=== PATIENT | female | born 1955 | race Caucasian/White ===

== ENCOUNTER 2021-03-31 10:42 | Day surgery (SDC) | payer OTHER, SELFPAY ==
[2021-03-31] VITALS (8 sets, daily range): BP systolic 135–158; BP diastolic 68–83; PULSE 67–88; RESP 14–16; TEMP 36.7–37.7; O2SAT 94–96; BMI 33.8
--- NOTE | 2021-03-31 | IMM_PTH ---
PATIENT: ALVIN AMAYA [place] [facility] [id number] AGE/SX: 65/F ROOM: RE03/31/[address]: Dr. Shanna Wild MD : 1955 BED: DIS: 03/31/2021 SPEC #: [id number] RECD: 04/04/21 13:01 STATUS: MARTÍNEZ RENaima #: [id number] JOSELINE: 03/31/21 00:[address]: Shanna Wild DEPT: IMMUNOHISTOCHEMISTRY RECD BY: Candace Her ENTERED: 04/04/21 13:05 SP TYPE: IMMUNO OTHR DR: Dr. Rene Delcid MD Tissues: Endometrium, NOS Procedures: SMA (add) MSH2 (add) MLH-1 (add) MSH6 (add) Anti-PMS2 (add) CALPONIN-1 (add) CK20 (add) CK7 (add) CK8 (add) DESMIN (add) KI-67 (add) P53 (add) ME (add) Vimentin (add) Pankeratin (add) ER (initial) PHYSICIAN & [address] [address] SPECIMEN INFORMATION: Tissue Source: Endometrial curettings Clinical Info: Postmenopausal bleeding Specimen Number: [id number] #3 CPT code: 42316, 75876 x15 METHODOLOGY: Deparaffinized sections of prefer/formalin-fixed tissue or PAP/DQ stained slides are incubated with monoclonal/polyclonal antibodies/oligonucleotide probes. Localization is made via biotin free immunoperoxidase method. Appropriate controls are performed and reacted as expected. Results on target cell population are indicated in the following table: RESULTS: ANTIBODY / CLONE RESULT Block 3 Ki-67 (30-9) positive, 70 ? 80% P53 (DO-7) positive, wild type MLH-1 (M1) positive MSH2 (25D12) positive MSH6 (44) positive PMS2 (CDV0214) positive ER (6F11) positive, focal ME (1E2) positive, focal AE1-3 (AE1/AE3/PCK26) positive, focal CK7 (OV-TL12/30) positive, focal CK8 (73ymvgW97) positive, focal CK20 (KS20.8) negative Vimentin (V9) positive Calponin-1 (ZG853A) positive, focal Actin (1A4) positive Desmin (CE-R-11) negative These tests were developed and their performance characteristics determined by [facility]. They may not have been cleared or approved by the U.S. Food and Drug Administration. The FDA has determined that such clearance or approval is not necessary. The above immunohistochemical/dualISH markers are ordered and reviewed by the Pathologist. 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 Result of Microsatellite Instability Study: Negative (no loss of mismatch protein; no microsatellite instability detected). See comment. SJ:vandana 04/08/2021 The specimen is sent to [facility] for expert opinion, reviewed by Dr. Villalta and the above diagnosis is rendered. The complete report is viewable in the patient's EMR. Case has been reviewed in consultation with Dr. May who concurs with the above diagnosis. IDC:AM
--- NOTE | 2021-03-31 10:16 | EKG12_ITS ---
Test Reason : PRE OP Blood Pressure : / mmHG Vent. Rate : 087 BPM Atrial Rate : 087 BPM P-R Int : 150 ms QRS Dur : 082 ms QT Int : 354 ms P-R-T Axes : 031 004 004 degrees QTc Int : 425 ms Normal sinus rhythm ST & T wave abnormality, consider anterior ischemia Abnormal ECG Confirmed by CHANTAL JAMISON, FELICE ([id number]), medical editor BARON RENEE ([id number]) on 04/05/2021 1:15:48 PM Referred By: Shanna Wild Confirmed By:FELICE CORNEJO MD
--- NOTE | 2021-03-31 12:25 | EMB_PTH ---
PATIENT: ALVIN AMAYA [place] [facility] [place][id number] AGE/SX: 65/F ROOM: RE03/31/[address]: Dr. Shanna Wild MD : 1955 BED: DIS: 03/31/2021 SPEC #: [id number] RECD: 04/01/21 06:48 STATUS: MARTÍNEZ MARSH #: [id number] JOSELINE: 03/31/21 12:[address]: Shanna Wild DEPT: SURGICAL PATHOLOGY RECD BY: Carolyn Carrera ENTERED: 04/01/21 09:50 SP TYPE: ENDOM BX/C OTHR DR: Dr. 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 See comment. SJ:vandana 04/08/2021 COMMENT The specimen is sent to [facility] for expert opinion, reviewed by Dr. Villalta and the above diagnosis is rendered. The complete report is viewable in the patient's EMR. Immunohistochemistry ([id number]) performed here and additional immunohistochemical stains performed at [facility] supports the above diagnosis. Case has been reviewed in consultation with Dr. May who concurs with the above diagnosis. IDC:AM MICROSCOPIC DESCRIPTION Slides are reviewed. GROSS DESCRIPTION Received in fixative is one container labeled with the patient's name and designated endometrial curettings. The specimen consists of multiple fragments of hemorrhagic soft tissue that in aggregate measure 5 x 3 x 0.6 cm. The specimen is totally submitted in four cassettes. / DALTON:vandana 04/01/2021 TC:0 CPT: 95492
[2021-03-31 14:18] LABS: Hematocrit 38.3 % (37-47); Hemoglobin 12.5 g/dL (12.0-15.0); Mean Corp Hgb Conc 32.6 g/dL (32-36); Mean Corpuscular Hgb 28.9 pg (27.0-32.0); Mean Corpuscular Volume 88.7 fL (81-99); Mean Platelet Vol. 9.1 fl (6.2-12.0); Platelet Count 307 K/mm3 (150-450); RBC Distribution Width CV 12.9 % (11.6-14.6); Red Blood Count 4.32 M/mm3 (4.2-5.4); White Blood Count 5.5 K/mm3 (4.4-11.0)
--- NOTE | 2021-03-31 14:30 | PCM.PN.BLA ---
Progress Note H&P reviewed and no clinically relevant updates since it was completed
--- NOTE | 2021-03-31 14:53 | PCM.DC ---
Discharge Instructions Diet Discharge Diet: No restrictions Activity May shower in (days): 0 May resume sexual activity in: 1 week Lifting Restrictions: none Additional Activity Instructions:: Nothing in your vagina, no tub baths for 1 week. You may use ibuprofen, naproxyn alternating with tylenol as needed or a heating pad to the lower abdomen as needed for pain. Dressing / Incision Call your doctor if your incision/area has: Sudden Increased Bleeding and Foul Smelling Discharge Call your doctor if you observe: Fever of 101 or Higher and Using more than 1 pad per hour (for 2 hrs in a row) Follow Up Care Please Follow Up With: Shanna Wild MD When: 2-4 weeks or as needed. Call [phone] to make an appointment or with any concerns. Test Results: Test results from this visit will be discussed in further detail at your follow-up appointment, if applicable. Discharge Plan Admission Primary Reason for Your Visit: Dilation and curettage Attending Provider: Shanna Wild Consulting Providers: Rene Delcid Discharge Orders/Prescriptions Prescriptions: No Action losartan 50 mg Tablet 50 mg PO DAILY RF: 0 bupropion HCl [Wellbutrin SR] 150 mg Tablet Sustained-Release 12 Hr 150 mg PO DAILY RF: 0 metoprolol tartrate 25 mg Tablet 25 mg PO DAILY RF: 0 Referrals / Follow Up: JOAN CARPENTER [Other] Disposition Disposition (needs filled in before D/C Order can be placed): Home, Self Care
[2021-03-31] MEDS: Lactated Ringers 1,000 ML 75 ML IV (14:55)
--- NOTE | 2021-03-31 14:57 | OP.PCM_ITS ---
Problems Associated Problem List Diagnoses (1) PMB (postmenopausal bleeding): (2) Stenotic cervical os: Report of Operation Date of Procedure: 03/31/21 Pre-Operative Diagnosis: Postmenopausal bleeding, stenotic cervix Post-Operative Diagnosis: same Surgery/Procedure Performed:: Hysteroscopy D&C with sypmhion Description of Surgical Findings:: Normal cervix and vagina. Ragged thickened endometrium, no discrete polyps Surgeon: Shanna Wild pre sales systems engineer: None Type of Anesthesia: MAC Anesthesiologist: Luis Holloway Special Medications: none Specimen's removed: endometrial curettings Drains: none Estimated Blood Loss (mL): 10 Fluids Replaced: 500 Description of Procedure: The patient was taken to the OR where she was prepped and draped in dorsal lithotomy position. The weighted speculum was placed in the vagina and the anterior lip of the cervix was grasped with a single-tooth tenaculum. A paracervical administration of dilute vasopressin solution was administered to help soften the cervix. A total of 4 units of vasopressin were injected. The cervix was dilated serially with Hegar dilators. The Symphion hysteroscope was placed into the uterine cavity and the above findings were noted. Bilateral tubal ostia [were] identified. The hysteroscope was removed. A sharp dilation and curettage was performed and the hhysteroscope was replaced. Ragged endometrium but no other abnormalities or polyps were noted. The instruments were removed from the vagina. The specimen was handed off and sent to pathology. All sponge and needle counts were correct. Vaginal sweep was performed by me. The patient was awakened and taken to the recovery room in stable condition. Hysteroscopic fluid deficit calculated to be 600 cc normal saline Grafts/Implants Used: none Procedure Start Time: 15:01 Procedure Stop Time: 15:12 Complications none Admit VTE Documentation VTE Present on Admission: No VTE Mechan Device Prophylaxis: SCD's VTE Pharm Prophylaxis ordered?: No Reason prophylaxis not ordered:: Procedure Not Indicated
[2021-03-31] MEDS: Vasopressin 20 UNITS/ML Vial (15:09)
== END 2021-03-31 23:59 | disposition home or self-care (01) ==
LOC: SDC 10:50 → AC 10:51
PROVIDERS: Referring Provider Obstetrics & Gynecology; Visit Provider Obstetrics & Gynecology
PROC: 0UDB8ZZ Extraction of Endometrium, Via Natural or Artificial Opening Endoscopic (ICD-10-PCS; CPT 58558; principal; 2021-03-31 12:15)
DX: C80.1 Malignant (primary) neoplasm, unspecified (principal); N95.0 Postmenopausal bleeding; F41.9 Anxiety disorder, unspecified; F32.A Depression, unspecified; K21.9 Gastro-esophageal reflux disease without esophagitis; I10 Essential (primary) hypertension; Z98.82 Breast implant status; N88.2 Stricture and stenosis of cervix uteri
CPT/HCPCS: 58558; 00952; 85027; 88305; 88341; 88342; 93005; J7120; J2405

== ENCOUNTER → 2021-10-19 | Outpatient (CLI) | payer OTHER, SELFPAY ==
[2021-10-19 08:36] VITALS: BP 132/67; PULSE 87; RESP 16; TEMP 36.8; O2SAT 97; BMI 33.1
[2021-10-19] MEDS: Acetaminophen 325 MG Tablet 650 MG PO (08:53)
[2021-10-19] MEDS: 0.9% NaCl VAD Flush IV (08:55)
[2021-10-19 09:31] VITALS: BP 133/62; PULSE 82; TEMP 36.5; O2SAT 99
[2021-10-19 10:33] VITALS: BP 132/68; PULSE 71; TEMP 36.4; O2SAT 99
[2021-10-19 11:22] VITALS: BP 155/66; PULSE 70; RESP 16; TEMP 36.6; O2SAT 98
== END | disposition home or self-care (01) ==
LOC: MEDOUTP 08:27
PROVIDERS: PCP Family Medicine Sports Medicine; Referring Provider Internal Medicine Hematology & Oncology; Visit Provider Internal Medicine Hematology & Oncology
DX: Z51.89 Encounter for other specified aftercare (principal); C55 Malignant neoplasm of uterus, part unspecified; D64.81 Anemia due to antineoplastic chemotherapy
CPT/HCPCS: 36430; 86850; 86900; 86901; 86920; 86922; J7040; P9016; A4216

== ENCOUNTER → 2022-12-25 | Outpatient (CLI) | payer OTHER, SELFPAY | END | disposition home or self-care (01) | LOC: LABSPEC 10:10 | PROVIDERS: PCP Family Medicine Sports Medicine; Referring Provider Physician Assistant; Visit Provider Physician Assistant | DX: N39.0 Urinary tract infection, site not specified (principal) | CPT/HCPCS: 87077; 87086; 87088; 87186 ==